=== PATIENT | male | born 1950 | race Caucasian/White ===

== ENCOUNTER 2018-04-20 06:53 | Day surgery (SDC) | payer MEDICARE, OTHER, SELFPAY ==
[2018-04-06 13:03] VITALS: BMI 27.1
[2018-04-20] MEDS: LACTATED RINGERS 1,000 ML 100 ML IV (07:15)
[2018-04-20 07:22] VITALS: BP 126/76; PULSE 54; RESP 16; TEMP 36.6; O2SAT 97; BMI 27.1
--- NOTE | 2018-04-20 07:29 | PM.HP.1 ---
History of Present Illness Date Patient Seen: 04/20/18 Time Patient Seen: 07:29 Chief complaint: left inguinal hernia repair [id number] Narrative: 67-year-old male who recently presented with an enlarging painful left inguinal mass. He notices the mass mostly with strenuous activity. He is able spontaneously reduce the lesion when he is relaxed and assumes a supine position. Pain is described as somewhat burning and radiating toward the left groin into the scrotum. He has no associated chronic cough, abdominal pain, nausea, vomiting, difficulty with bowel function, or change in urinary patterns. No melena, hematochezia, or bright red blood per rectum. Denies any symptoms in the right side of the groin. Patient History Medical History Allergic rhinitis (Acute) Chronic lymphocytic leukemia (Acute) Colonoscopy planned (Acute) Elevated liver enzymes (Acute) GERD (gastroesophageal reflux disease) (Acute) History of liver disease (Acute) Irritable bowel syndrome (Acute) Left inguinal hernia (Acute) Mass of left inguinal region (Acute) Osteoarthritis (Acute) Retinitis pigmentosa (Acute) Right inguinal hernia (Acute) Tinnitus (Acute) Family & Social History Family History: Reviewed 04/20/18 by Alfredo Taveras MD Social History: household members spouse Tobacco & Substance use: Smoking Status Never smoker alcohol intake current alcohol intake frequency 0-2 drinks per day Substance Use Type does not use Meds Home Medications Medication Instructions Recorded Confirmed Type lutein 20 mg PO #0 09/15/16 History calcium carbonate [Tums] 500 mg PO QDAY #0 03/11/17 04/20/18 History multivitamin 04/06/18 History Vitamin C 04/20/18 History Vitamin D3 04/20/18 History vitamin B complex 04/20/18 History vitamin E 04/20/18 History Allergies Allergy/AdvReac Type Severity Reaction Status Date / Time amoxicillin [AMOXICILLIN] Allergy Intermediate HIVES Verified 04/20/18 07:07 Review of Systems Review of Systems Unchanged from his initial evaluation in January 2018 All systems reviewed & are unremarkable except as noted in HPI and below Exam Narrative Exam Narrative: Well-nourished well-developed male lying comfortably on the gurney in no acute distress. Alert oriented x3. is at the bedside. Sclera nonicteric Neck is supple Chest clear to auscultation bilaterally. Regular rate and rhythm Abdomen soft, nondistended, nontender, no masses Extremities show no clubbing, cyanosis, or edema Focused inguinal examination reveals reducible mildly tender left inguinal hernia. No inguinal lymphadenopathy bilaterally. Objective Labs Labs: Recent laboratory studies from the [facility] for his known chronic lymphocytic leukemia show a normal white blood cell count, normal hemoglobin, and normal platelet count of [id number]. Assessment & Plan Plan: Assessment/Plan Narrative: 67-year-old male with symptomatic reducible left inguinal hernia. I recommended once again open repair with mesh of the hernia. Technical details were again reviewed. Risks, benefits, and alternatives were also explained as documented in his original visit of February 10, 2018. Please refer to that note for further details. Otherwise, the entire document remains completely unchanged except as noted above today. All questions were once again answered to his satisfaction, and he voiced understanding. Consent was placed on the chart. We will proceed with surgery today as planned.
--- NOTE | 2018-04-20 07:32 | P.HP_ITS ---
History of Present Illness Date Patient Seen: 04/20/18 Time Patient Seen: 07:29 Chief complaint: left inguinal hernia repair [id number] Narrative: 67-year-old male who recently presented with an enlarging painful left inguinal mass. He notices the mass mostly with strenuous activity. He is able spontaneously reduce the lesion when he is relaxed and assumes a supine position. Pain is described as somewhat burning and radiating toward the left groin into the scrotum. He has no associated chronic cough, abdominal pain, nausea, vomiting, difficulty with bowel function, or change in urinary patterns. No melena, hematochezia, or bright red blood per rectum. Denies any symptoms in the right side of the groin. Patient History Medical History Allergic rhinitis (Acute) Chronic lymphocytic leukemia (Acute) Colonoscopy planned (Acute) Elevated liver enzymes (Acute) GERD (gastroesophageal reflux disease) (Acute) History of liver disease (Acute) Irritable bowel syndrome (Acute) Left inguinal hernia (Acute) Mass of left inguinal region (Acute) Osteoarthritis (Acute) Retinitis pigmentosa (Acute) Right inguinal hernia (Acute) Tinnitus (Acute) Family & Social History Family History: Reviewed 04/20/18 by Alfredo Taveras MD Social History: household members spouse Tobacco & Substance use: Smoking Status Never smoker alcohol intake current alcohol intake frequency 0-2 drinks per day Substance Use Type does not use Meds Home Medications Medication Instructions Recorded Confirmed Type lutein 20 mg PO #0 09/15/16 History calcium carbonate [Tums] 500 mg PO QDAY #0 03/11/17 04/20/18 History multivitamin 04/06/18 History Vitamin C 04/20/18 History Vitamin D3 04/20/18 History vitamin B complex 04/20/18 History vitamin E 04/20/18 History Allergies Allergy/AdvReac Type Severity Reaction Status Date / Time amoxicillin [AMOXICILLIN] Allergy Intermediate HIVES Verified 04/20/18 07:07 Review of Systems Review of Systems Unchanged from his initial evaluation in January 2018 All systems reviewed & are unremarkable except as noted in HPI and below Exam Narrative Exam Narrative: Well-nourished well-developed male lying comfortably on the gurney in no acute distress. Alert oriented x3. is at the bedside. Sclera nonicteric Neck is supple Chest clear to auscultation bilaterally. Regular rate and rhythm Abdomen soft, nondistended, nontender, no masses Extremities show no clubbing, cyanosis, or edema Focused inguinal examination reveals reducible mildly tender left inguinal hernia. No inguinal lymphadenopathy bilaterally. Objective Labs Labs: Recent laboratory studies from the [facility] for his known chronic lymphocytic leukemia show a normal white blood cell count, normal hemoglobin, and normal platelet count of [id number]. Assessment & Plan Plan: Assessment/Plan Narrative: 67-year-old male with symptomatic reducible left inguinal hernia. I recommended once again open repair with mesh of the hernia. Technical details were again reviewed. Risks, benefits, and alternatives were also explained as documented in his original visit of February 10, 2018. Please refer to that note for further details. Otherwise, the entire document remains completely unchanged except as noted above today. All questions were once again answered to his satisfaction, and he voiced understanding. Consent was placed on the chart. We will proceed with surgery today as planned.
--- NOTE | 2018-04-20 07:33 | PM.PREOP ---
Pre-operative Note Interval Note Pre-op Check: Yes History & Physical Reviewed by Physician, Yes Exam Performed and Yes History & Physical exam performed today by Physician Changes: No H&P completed within 30 days and has changed as indicated here:: Patient was again seen and examined today. History physical examination documented and placed on the chart dated today. No significant changes from his original evaluation of February 10, 2018. However, H&P is updated accordingly. Proceed with open left inguinal hernia repair with mesh as planned today.
[2018-04-20] MEDS: CLINDAMYCIN 900 MG/50 ML PIGGYBACK 50 MG IV (07:56)
--- NOTE | 2018-04-20 08:33 | SUR.OPER ---
to or from opd via gurney transfered to or table per self Supine on padded OR bed, head on pillow, arms secured on padded arm boards at <90 degrees abduction, legs uncrossed, safety belt at thigh, tape over blanket over lower legs.
[2018-04-20] MEDS: BUPIVACAINE 0.5% (PF) VIAL 30 ML INJ (09:11)
[2018-04-20] MEDS: LIDOCAINE 1% 20 ML INJ INJ (09:11)
--- NOTE | 2018-04-20 09:31 | PM.OP.1 ---
Operative Date/Time/Diagnoses Date of procedure: 04/20/18 Time of procedure: 09:31 Pre-op diagnosis: Symptomatic left inguinal hernia Post-op diagnosis: same Procedure & Clinicians Procedure: 1. Open left inguinal hernia repair with mesh Same procedure as scheduled: Yes Indications: 67-year-old male who presented with enlarging painful left inguinal mass found to be consistent with reducible hernia on examination. Open repair with mesh was recommended. Surgeon: Alfredo Taveras Click Yes if Unassisted: Yes Anesthesia Type: General Operative Notes Findings: 1. Extremely large left indirect hernia sac 2. Extremely large lipoma of the cord consistent with herniated preperitoneal fat 3. Chronic adhesions between the hernia sac, lipoma of the cord, and adjacent structures including the spermatic cord 4. Extremely attenuated fragile ilioinguinal nerve which was sacrificed during the dissection in order to adequately reduce the hernia and prevent potential chronic neuropathic pain Closure Type: primary Specimen(s): none sent Implants & Drains: 1. Large Pro Loop polypropylene mesh plug and onlay patch in left inguinal canal Estimated Blood Loss (mL): 15 Blood products transfused: none Procedure in detail: After obtaining informed consent the patient was brought to the operating room placed supine on the table. After satisfactory induction of anesthesia the abdomen was prepped and draped in the usual sterile fashion including the genitalia. A SCOAP time-out was performed per standard protocol. Transverse incision for a distance of approximately 4 cm was designed over the course of the left inguinal canal in an existing skin fold. Area was infiltrated with a 1-1 mixture 1% lidocaine with 1 100,000 epinephrine and 0.5% plain Marcaine for postoperative analgesia. Skin incision was created with a 10. Scalpel blade followed by the Bovie for hemostasis. Dissection proceeded down through the subcutaneous tissue to the external oblique fascia. Weitlaner retractor was used to provide exposure. External oblique fascia was divided in the direction of its fibers with a 15. Scalpel blade followed by Metzenbaum scissors to the level of the external inguinal ring. Edges of the fascia were secured with hemostats bilaterally. Meticulous blunt dissection was employed to encircle the hernia sac, lipoma of the cord, and spermatic cord structures. This dissection was actually somewhat more difficult because of the significant chronic adhesions present between all the structures. Eventually I was able to encircle the structures as above bluntly followed by a Alex drain. Meticulous blunt dissection as well as intermittent sharp dissection was employed to skeletonize the spermatic cord. Findings are as above. I did sacrifice the ilioinguinal nerve as indicated above. The lipoma of the cord and large hernia sac were eventually liberated from surrounding structures and reduced back through the internal inguinal ring. There was no evidence of any significant direct hernia defect. Mesh was then brought onto the operative field and the plug was placed into the internal inguinal ring. Plug was secured with interrupted 2 0 Vicryl suture circumferentially. Onlay patch was brought onto the field and placed over the floor the inguinal canal. Patch was sewn in place with interrupted 0 Tycron sutures. Anteriorly the mesh was sewn to the conjoined tendon while laterally it was secured to the ileal pubic tract. Medially the mesh was secured to the rectus fascia. Tails of the mesh were brought around the spermatic cord and placed deep to the external oblique fascia where they were secured with a single 0 Tycron stitch. Great care was taken to avoid strangulation of the spermatic cord. Wound was irrigated with copious amounts of sterile saline solution and hemostasis was verified. Spermatic cord was placed back into its usual anatomic position and the external oblique fascia was closed over the cord with running 3 0 Vicryl suture. Subcutaneous tissue was reapproximated with interrupted 3 0 Vicryl suture. Skin was closed with a running subcuticular 4 O Monocryl suture. Dermal adhesive was applied to the skin. At the conclusion of the case the testicles were noted to be in normal descended position bilaterally. Anesthesia was reversed the patient extubated in the operating room. He was taken recovery in stable condition. Complications: none Condition: stable Disposition: PACU Plan for aftercare: 1. Discharge to home 2. Follow up in surgery Clinic in 2 weeks
[2018-04-20 09:33] VITALS: BP 108/69; BP 109/67; PULSE 73; PULSE 74; RESP 10; RESP 16; TEMP 36.1; O2SAT 94
[2018-04-20 09:38] VITALS: BP 123/74; PULSE 86; RESP 10; TEMP 36; O2SAT 96
[2018-04-20 09:43] VITALS: BP 116/80; PULSE 75; RESP 16; O2SAT 96
[2018-04-20 09:49] VITALS: BP 112/70; PULSE 78; RESP 15; TEMP 36.1; O2SAT 97
[2018-04-20] MEDS: OXYCODONE/ACETAMINOPHEN 5/325 TABLET 1 TAB PO (09:55)
[2018-04-20 10:05] VITALS: BP 123/74; PULSE 74; RESP 15; TEMP 36.3; O2SAT 98
== END 2018-04-20 10:42 | disposition home or self-care (01) ==
PROVIDERS: Visit Provider Surgery
PROC: (CPT 49505; principal; 2018-04-20 07:45)
DX: K40.90 Unilateral inguinal hernia, without obstruction or gangrene, not specified as recurrent (principal); D17.6 Benign lipomatous neoplasm of spermatic cord; K66.0 Peritoneal adhesions (postprocedural) (postinfection)
CPT/HCPCS: 49505; C1781; J1100; J1885; J2405; J2704; J3010

== ENCOUNTER 2018-04-22 12:14 | Emergency (ER) | payer MEDICARE, OTHER, SELFPAY ==
[2018-04-22 12:17] VITALS: BP 142/82; PULSE 87; RESP 22; TEMP 37; O2SAT 100
--- NOTE | 2018-04-22 12:56 | ED.ABDPAIN ---
HPI - Abdominal Pain General Chief Complaint: Abdominal Pain Stated Complaint: Constipation Time Seen by Provider: 04/22/18 12:31 Source: patient Mode of arrival: EMS Limitations: no limitations History of Present Illness HPI narrative: 67-year-old male here for evaluation of constipation. Patient states that on Thursday of this week he had a left inguinal hernia repair done by Dr. Taveras here at [facility]. He states that after the surgery he only had a day or so of the opioid pain medication. Since then he has been on Motrin and Tylenol. He states that the wound seems to be healing fine. Is having some discomfort to that area. Is here because he has not had a bowel movement for the past couple days. Has tried some do could state at home without any improvement. He states that he has the urge to go the bathroom but cannot go to the bathroom. Has not had any vomiting. No abdominal pain other than around the surgical site. Related Data Home Medications Medication Instructions Recorded Confirmed lutein 20 mg PO DAILY #0 09/15/16 04/22/18 calcium carbonate [Tums] 500 mg PO QDAY #0 03/11/17 04/22/18 multivitamin 1 tab PO DAILY 04/06/18 04/22/18 Vitamin C 1 tab PO DAILY 04/20/18 04/22/18 Vitamin D3 1 cap PO DAILY 04/20/18 04/22/18 vitamin B complex 1 tab PO DAILY 04/20/18 04/22/18 vitamin E 1 cap PO DAILY 04/20/18 04/22/18 acetaminophen [Tylenol Extra 1 dose PO PRN PRN 04/22/18 04/22/18 Strength] docusate sodium [DulcoEase] 1 cap PO PRN PRN 04/22/18 04/22/18 Previous Rx's Medication Instructions Recorded oxycodone 5 mg PO Q3H PRN #40 tab 04/20/18 sodium phosphates [Fleet Enema] 118 ml KS DAILY PRN #133 ml 04/22/18 Allergies Allergy/AdvReac Type Severity Reaction Status Date / Time amoxicillin [AMOXICILLIN] Allergy Intermediate HIVES Verified 04/22/18 12:23 Review of Systems Constitutional Denies fatigue, Denies fever(s) and Denies headache(s) ENT Ears, Nose, Mouth, and Throat: Denies vertigo, Denies dizziness and Denies headache(s) Cardiovascular Denies chest pain and Denies dyspnea Respiratory Denies dyspnea Gastrointestinal Gastrointestinal: Reports abdominal pain, Denies bloating, Reports change in bowel habits, Reports constipation, Reports cramping, Denies diarrhea, Denies nausea and Denies vomiting Genitourinary Denies dysuria Musculoskeletal Denies myalgias and Denies arthralgias Integumentary/Breasts Denies lesions and Denies rash Neurologic Denies vertigo, Denies dizziness and Denies headache(s) Endocrine Denies fatigue Hematologic/Lymphatic Denies easy bleeding and Denies easy bruising [facility] Medical History Allergic rhinitis (Acute) Chronic lymphocytic leukemia (Acute) Colonoscopy planned (Acute) Elevated liver enzymes (Acute) GERD (gastroesophageal reflux disease) (Acute) History of liver disease (Acute) Irritable bowel syndrome (Acute) Left inguinal hernia (Acute) Mass of left inguinal region (Acute) Osteoarthritis (Acute) Retinitis pigmentosa (Acute) Right inguinal hernia (Acute) Tinnitus (Acute) Social History household members: spouse Smoking Status: Never smoker alcohol intake: current Exam Initial Vital Signs Initial Vital Signs: Vital Signs Temperature 98.6 F 04/22/18 12:17 Pulse Rate 87 04/22/18 12:17 Respiratory Rate 22 04/22/18 12:17 Blood Pressure 142/82 H 04/22/18 12:17 Pulse Oximetry 100 04/22/18 12:17 Const General: cooperative, healthy appearing, comfortable, well developed, well groomed and No acute distress Orientation: alert, awake and oriented x3 HENMT Head: normal to inspection, normocephalic and atraumatic Resp Effort & Inspection: normal respiratory effort GI Inspection: non-distended Palpation: soft, No firm, No guarding and tender ( left lower quadrant over the surgical site) Rectal Exam: normal sphincter tone, No fecal impaction, No mass and tenderness External: normal external exam and circumcised Skin Other: patient with bruising to the left lower quadrant extending around the surgical site and down into his scrotum. It does appear to the be what I would expect 2 days after an inguinal hernia repair. The surgical incision site looks well. Does have some surrounding redness however I feel that it is what would be expected after this type of surgery. Extrem General: normal to inspection and capillary refill normal Psych Appearance: grossly normal and well kempt Course Orders Ordered: ED Orders 04/22/18 13:30 Urine Microscopic Stat Discontinued Medications Sodium Biphosphate/Sodium Phosphate (Fleet Enema) 1 each KS NOW ONE Stop: 04/22/18 12:57 Last Admin: 04/22/18 13:49 Dose: 1 each Vital Signs - 8 hr 04/22/18 12:17 Temperature 98.6 F Pulse Rate 87 Respiratory Rate 22 Blood Pressure 142/82 H Pulse Oximetry 100 MDM - Abdominal Pain Lab Data Attestation: I reviewed the patient's lab results. Lab Results 04/22/18 Range/Units 13:30 Urine RBC 0-1/hpf (0-5/HPF) Urine WBC 0-1/hpf (0-5/HPF) Ur Squamous Epith Cells 0-1 /hpf Urine Bacteria None seen (None) Ur Culture Indicated? Cult not indicated Micro UA Comment Not Reportable Point of care testing: Urine Dip Bedside Urine Glucose Negative Bedside Urine Bilirubin - Negative Bedside Urine Ketone - Negative Urine Specific Spencer 1.015 Bedside Urine Occult Blood + Bedside Urine pH 6.0 Bedside Urine Protein - Negative Bedside Urine Urobilinogen - Negative Bedside Urine Nitrite - Negative Bedside Urine Leukocytes - Negative Esterase MDM Narrative Medical decision making narrative: Patient has a benign abdominal exam. The surgical site in his left lower quadrant is consistent with what I would expect 2 days after his inguinal hernia repair. I did discuss with him that if the redness did worsen the what it is now he did need to be re-evaluated. Patient received a enema here in the emergency department without any success in a bowel movement. My rectal exam does not show any palpable stool in his rectum. Will hold on a CT scan for now. Considered an obstruction however patient has a soft benign abdomen, is still passing flatus, has not had any vomiting. Will send home with a prescription for another enema. We did discuss the use of oral laxative such as MiraLax. He was given return precautions. He expressed understanding and agreement with plan Discharge Plan Departure Patient Disposition: Home, Self-Care Clinical Impression: Constipation Instructions: Constipation (Alternative Therapy), Constipation Activity Restrictions/Additional Instructions: continue all of your medications as directed. Use the MiraLax that you can buy [id number] likely discussed. If the redness around her surgical incision worsens than what it is today you do need to be re-evaluated. You can contact your operative surgeon initially before returning to the emergency department for this however you can return to the ER if needed. With regard to year constipation return to the emergency department for any new symptoms, worsening abdominal pain, vomiting, fevers, or any other concerning symptoms. Prescriptions: New sodium phosphates [Fleet Enema] 19-7 gram/118 mL enema 118 ml KS DAILY PRN (Reason: constipation) Qty: 133 RF: 0 No Action lutein 20 MG capsule 20 mg PO DAILY Qty: 0 RF: 0 calcium carbonate [Tums] 500 MG tablet,chewable 500 mg PO QDAY Qty: 0 RF: 0 multivitamin Tablet 1 tab PO DAILY RF: 0 Vitamin C 1 tab PO DAILY RF: 0 Vitamin D3 1 cap PO DAILY RF: 0 vitamin B complex 1 tab PO DAILY RF: 0 vitamin E 1 cap PO DAILY RF: 0 oxycodone 5 mg tablet 5 mg PO Q3H PRN (Reason: pain) Qty: 40 RF: 0 acetaminophen [Tylenol Extra Strength] 500 mg Tablet 1 dose PO PRN PRN (Reason: Pain, Mild) RF: 0 docusate sodium [DulcoEase] 100 mg Capsule 1 cap PO PRN PRN (Reason: Constipation) RF: 0
[2018-04-22 13:39] LABS: Bacteria Urine None Seen
[2018-04-22] MEDS: FLEETS ENEMA 1 EACH PR (13:49)
[2018-04-22 13:53] LABS: RBC Urine 0-1/HPF (0-5/HPF); WBC Urine 0-1/HPF (0-5/HPF)
[2018-04-22 13:54] LABS: Culture Indicated Urine Cult Not Indicated; Squamous Epithelial Cell Urine 0-1 /HPF
[2018-04-22 14:26] VITALS: BP 118/77; PULSE 79; RESP 15; O2SAT 98
== END 2018-04-22 14:39 | disposition home or self-care (01) ==
PROVIDERS: Emergency Provider Emergency Medicine
DX: K59.00 Constipation, unspecified (principal)
CPT/HCPCS: 81003; 81015; 99282; 99283

== ENCOUNTER → 2020-06-16 09:19 | Outpatient (CLI) | payer MEDICARE, OTHER, SELFPAY ==
[2020-06-16 11:16] LABS: Alanine Aminotransferase 22 IU/L (<50); Albumin 3.8 g/dL (3.5-5.0); Albumin Globulin Ratio 1.5 (1.0-2.8); Alkaline Phosphatase 48 U/L (38-126); Aspartate Aminotransferase 29 IU/L (17-59); BUN Creatinine Ratio 18.3 (6-22); Bilirubin Total 1.1 mg/dL (0.2-1.3); Blood Urea Nitrogen 17 mg/dL (9-20); Calcium 9.1 mg/dL (8.4-10.2); Carbon Dioxide 29 mmol/L (22-32); Chloride 105 mmol/L (98-107); Cholesterol 149 mg/dL (140-199); Estimated Glomerular Filt Rate > 60.0 mL/min (>60); Globulin 2.5 g/dL (1.7-4.1); Glucose 93 mg/dL (80-110); HDL Cholesterol 42 mg/dL (40-60); HEMOLYSIS < 15 (0-50); LDL Cholesterol Calculated 85 mg/dL (<100); Magnesium 2.3 mg/dL (1.6-2.3); Potassium 4.1 mmol/L (3.4-5.1); Sodium 138 mmol/L (137-145); Total Protein 6.3 g/dL (6.3-8.2); Triglycerides 109 mg/dL (35-150)
[2020-06-16 11:18] LABS: Hemoglobin A1C% w Est Avg Glu 5.5 % (4.0-6.0)
== END ==
PROVIDERS: PCP Family Medicine; Referring Provider Family Medicine; Visit Provider Family Medicine
DX: Z13.1 Encounter for screening for diabetes mellitus (principal); R11.0 Nausea
CPT/HCPCS: 36415; 80053; 80061; 83036; 83735; 85610

== ENCOUNTER → 2020-10-25 07:59 | Outpatient (CLI) | payer MEDICARE, OTHER, SELFPAY ==
[2020-10-25] MEDS: COVID-19 VACC #1, MRNA(MOD) 100 MCG/0.5 ML VIAL IM (08:10)
== END ==
PROVIDERS: PCP Family Medicine; Visit Provider Internal Medicine
DX: Z23 Encounter for immunization (principal)
CPT/HCPCS: 0011A; 91301

== ENCOUNTER → 2020-11-22 07:41 | Outpatient (CLI) | payer MEDICARE, OTHER, SELFPAY ==
[2020-11-22] MEDS: COVID-19 VACC #2, MRNA(MOD) 100 MCG/0.5 ML VIAL IM (07:49)
== END ==
PROVIDERS: PCP Family Medicine; Visit Provider Internal Medicine
DX: Z23 Encounter for immunization (principal)
CPT/HCPCS: 0012A; 91301

== ENCOUNTER → 2021-07-04 07:02 | Outpatient (CLI) | payer MEDICARE, OTHER, SELFPAY ==
--- NOTE | 2021-07-04 07:04 | DI.RAD.S_ITS ---
PROCEDURE: XR SHOULDER RT MIN 2V INDICATIONS: right shoulder pain TECHNIQUE: 3 views of the shoulder were acquired. COMPARISON: None. FINDINGS: Bones: No fractures or dislocations. Mild degenerative change at the GH and AC joints. No suspicious bony lesions. Visualized ribs appear intact. Soft tissues: No suspicious soft tissue calcifications. IMPRESSION: Mild right shoulder DJD appreciated. If clinically indicated consider MRI for further evaluation of the rotator cuff. Dictated by: Giuseppe Mancia M.D. on 07/04/2021 at 7:50 Approved by: Giuseppe Mancia M.D. on 07/04/2021 at 7:51
[2021-07-04 08:13] LABS: Hematocrit 42.6 % (41-53); Mean Corpuscular HGB Conc 32.9 % (30-36); Mean Corpuscular Volume 100.4 fL (80-100); Platelet Count 159 X10^3/uL (150-400); Red Blood Cell Count 4.24 X10^6/uL (4.5-5.9); Red Cell Distribution Width 13.7 % (11.6-14.8); White Blood Cell Count 20.5 X10^3/uL (4.5-11.0)
[2021-07-04 08:17] LABS: Add Manual Diff / Slide Review YES
[2021-07-04 08:52] LABS: Alanine Aminotransferase 18 IU/L (<50); Albumin 4.1 g/dL (3.5-5.0); Albumin Globulin Ratio 1.9 (1.0-2.8); Alkaline Phosphatase 49 U/L (38-126); Aspartate Aminotransferase 23 IU/L (17-59); BUN Creatinine Ratio 21.4 (6-22); Blood Urea Nitrogen 22 mg/dL (9-20); Calcium 9.4 mg/dL (8.4-10.2); Carbon Dioxide 31 mmol/L (22-32); Chloride 105 mmol/L (98-107); Estimated Glomerular Filt Rate > 60.0 mL/min (>60); Globulin 2.2 g/dL (1.7-4.1); Glucose 81 mg/dL (80-110); HEMOLYSIS < 15 (0-50); Lactate Dehydrogenase 360 U/L (313-618); Potassium 3.9 mmol/L (3.4-5.1); Sodium 140 mmol/L (137-145); Total Protein 6.3 g/dL (6.3-8.2)
[2021-07-04 09:04] LABS: Neutrophils Absolute Manual 3485 /uL (3000-5900); RBC Morphology Normal Morphology; Smudge Cells 3+; Total Cells Counted 100
== END ==
PROVIDERS: PCP Family Medicine; Referring Provider Family Medicine; Visit Provider Family Medicine
DX: M75.41 Impingement syndrome of right shoulder (principal); C91.90 Lymphoid leukemia, unspecified not having achieved remission; M54.2 Cervicalgia; R59.0 Localized enlarged lymph nodes; M19.011 Primary osteoarthritis, right shoulder
CPT/HCPCS: 36415; 73030; 80053; 83615; 85007; 85025

== ENCOUNTER → 2021-07-05 15:52 | Outpatient (CLI) | payer MEDICARE, OTHER, SELFPAY ==
--- NOTE | 2021-07-05 15:54 | DI.CT.S_ITS ---
PROCEDURE: CT SOFT TISSUE NECK WO CON INDICATIONS: posterior cervical lymphadenopathy TECHNIQUE: Non-contrast 3.0 mm axial sections acquired from the sella to the aortic arch. Additional oblique axial 3.0 mm sections acquired through the pharynx. 3 mm thick coronal and sagittal reformats were generated. For radiation dose reduction, the following was used: automated exposure control. COMPARISON: None. FINDINGS: Image quality: Excellent. Lymph nodes: Scattered nonenlarged lymph nodes noted in the submental and deep cervical chains. Largest is a left level 4 node short axis 8 mm. Scattered level 5 nodes all measure less than 5 mm short axis. Bilateral supraclavicular nodes measure up to 9 mm short axis on the left. Subcutaneous 8 mm lymph node in the posterior subcutaneous fat at the level of C2 measures 8 mm in short axis. Vessels: Non-opacified vessels appear normal in caliber. Neck spaces: The oropharynx, nasopharynx, and pharynx demonstrate no mucosal lesions. The vocal cords, false vocal cords, pyriform sinuses, epiglottis, vallecula, and tongue base all appear normal. Extramucosal spaces appear unremarkable. Glands: The parotid and submandibular glands appear normal, without stones. Thyroid gland unremarkable. Miscellaneous: Visualized brain and orbits appear normal. Lung apices appear clear. Superficial soft tissues appear normal. Lack of IV contrast precludes definitive evaluation of solid and vascular structures IMPRESSION: 1. Scattered nonenlarged lymph nodes throughout the neck as above are not enlarged but abnormal in number 2. Degenerative cervical spine changes. Approved by: Andi Oliver M.D. on 07/05/2021 at 16:05
== END ==
PROVIDERS: PCP Family Medicine; Referring Provider Family Medicine; Visit Provider Family Medicine
DX: R59.0 Localized enlarged lymph nodes (principal); M54.2 Cervicalgia; C91.90 Lymphoid leukemia, unspecified not having achieved remission
CPT/HCPCS: 70490

== ENCOUNTER → 2021-08-16 13:30 | Outpatient (CLI) | payer MEDICARE, OTHER, SELFPAY ==
[2021-08-16] MEDS: COVID-19 VACC #3, MRNA(MOD) 50 MCG/0.25 ML VIAL IM (13:35)
== END ==
PROVIDERS: PCP Family Medicine; Visit Provider Internal Medicine
DX: Z23 Encounter for immunization (principal)
CPT/HCPCS: 0013A; 91301

== ENCOUNTER → 2021-08-20 16:15 | Outpatient (CLI) | payer MEDICARE, OTHER, SELFPAY ==
--- NOTE | 2021-08-20 16:17 | DI.MRI.S_ITS ---
PROCEDURE: MR CERVICAL SPINE WO CON INDICATIONS: CLL and chronic neck pain TECHNIQUE: Noncontrast sagittal T1 spin echo and T2 fast spin echo, sagittal STIR, foraminal oblique sagittal T2 fast spin echo, and axial gradient echo or T2 fast spin echo through the cervical spine. COMPARISON: None. FINDINGS: Image quality: Excellent. Alignment and Curvature: There is mild grade 1 retrolisthesis of C3 on C4, C4 on C5, and C5 on C6. Bone Marrow: Marrow demonstrates normal overall signal. Mild reactive signal throughout the endplates of the cervical spine. Spinal Cord: Visualized spinal cord has normal size and signal. No cerebellar tonsillar herniation. Paraspinous Soft Tissues: No paravertebral masses. Prevertebral soft tissues are normal in thickness. C2-C3: Moderate disc desiccation. Mild diffuse disc bulge. Mild facet and uncovertebral hypertrophy bilaterally. Mild canal stenosis. Mild bilateral foraminal stenosis. C3-C4: Congenital canal stenosis. Moderate disc height loss and desiccation. Moderate diffuse disc bulge. Moderate facet and uncovertebral hypertrophy. Severe canal stenosis. Mild cord flattening. Severe bilateral foraminal stenosis with bilateral C4 nerve root compression. C4-C5: Congenital canal stenosis. Mild disc height loss. Moderate disc desiccation. Moderate diffuse disc bulge. Moderate facet and uncovertebral hypertrophy. Severe canal stenosis. Mild cord flattening. Severe right and moderate left foraminal stenosis. Right C5 nerve root compression. C5-C6: Congenital canal stenosis. Mild disc height loss. Moderate disc desiccation. Mild diffuse disc bulge. Mild facet and uncovertebral hypertrophy. Moderate canal stenosis. Mild bilateral foraminal stenosis. C6-C7: Congenital canal stenosis. Moderate disc desiccation. Mild diffuse disc bulge. Mild facet and uncovertebral hypertrophy bilaterally. Moderate canal stenosis. Mild bilateral foraminal stenosis. C7-T1: Moderate disc height loss and desiccation. No significant canal, or foraminal stenosis. IMPRESSION: 1. Multilevel degenerative disc and facet disease, as well as uncovertebral hypertrophy, superimposed on diffuse congenital canal stenosis. 2. Multilevel canal stenoses, worst at C3-C4 and C4-C5 where there is mild cord flattening. 3. Multilevel foraminal stenoses, worst at C3-C4 and C4-C5 where there is associated intraforaminal nerve root compression. Recommend correlation with clinical symptoms to ascertain relevance of these findings. Dictated by: Cassidy Simms M.D. on 08/21/2021 at 8:28 Approved by: Cassidy Simms M.D. on 08/21/2021 at 8:33
== END ==
PROVIDERS: PCP Family Medicine; Referring Provider Family Medicine; Visit Provider Family Medicine
DX: M50.31 Other cervical disc degeneration, high cervical region (principal); M48.02 Spinal stenosis, cervical region; R59.0 Localized enlarged lymph nodes; C91.10 Chronic lymphocytic leukemia of B-cell type not having achieved remission; G89.29 Other chronic pain
CPT/HCPCS: 72141

== ENCOUNTER → 2022-11-29 08:02 | Outpatient (CLI) | payer MEDICARE, OTHER, SELFPAY ==
[2022-11-29 08:45] LABS: Hematocrit 40.3 % (41-53); Hemoglobin 13.8 g/dL (13.5-17.5); Mean Corpuscular HGB Conc 34.2 % (30-36); Mean Corpuscular Hemoglobin 33.2 PG (26-34); Mean Corpuscular Volume 97.1 fL (80-100); Platelet Count 168 X10^3/uL (150-400); Red Blood Cell Count 4.16 X10^6/uL (4.5-5.9); Red Cell Distribution Width 13.7 % (11.6-14.8); White Blood Cell Count 17.6 X10^3/uL (4.5-11.0)
[2022-11-29 08:46] LABS: Alanine Aminotransferase 25 IU/L (<50); Albumin 3.9 g/dL (3.5-5.0); Albumin Globulin Ratio 1.9 (1.0-2.8); Alkaline Phosphatase 53 U/L (38-126); Aspartate Aminotransferase 28 IU/L (17-59); BUN Creatinine Ratio 18.8 (6-22); Bilirubin Total 1.3 mg/dL (0.2-1.3); Blood Urea Nitrogen 18 mg/dL (9-20); Calcium 8.8 mg/dL (8.4-10.2); Carbon Dioxide 25 mmol/L (22-32); Chloride 107 mmol/L (98-107); Cholesterol 140 mg/dL (140-199); Estimated Glomerular Filt Rate > 60 mL/min (>60); Globulin 2.1 g/dL (1.7-4.1); Glucose 92 mg/dL (80-110); HDL Cholesterol 39 mg/dL (40-60); HEMOLYSIS < 15 (0-50); LDL Cholesterol Calculated 68 mg/dL (<100); Potassium 3.9 mmol/L (3.4-5.1); Sodium 139 mmol/L (137-145); Triglycerides 164 mg/dL (35-150)
[2022-11-29 09:04] LABS: Add Manual Diff / Slide Review YES
[2022-11-29 09:07] LABS: Neutrophils Absolute Manual 5456 /uL (3000-5900); RBC Morphology Normal Morphology; Smudge Cells 3+; Total Cells Counted 100
== END ==
PROVIDERS: PCP Family Medicine; Referring Provider Family Medicine; Visit Provider Family Medicine
DX: E78.5 Hyperlipidemia, unspecified (principal); R74.8 Abnormal levels of other serum enzymes
CPT/HCPCS: 36415; 80053; 80061; 85007; 85025

== ENCOUNTER → 2023-04-18 15:29 | Outpatient (CLI) | payer MEDICARE, OTHER, SELFPAY ==
--- NOTE | 2023-04-18 15:33 | DI.RAD.S_ITS ---
PROCEDURE: XR CHEST 2V INDICATIONS: Cough TECHNIQUE: 2 views of the chest were acquired. COMPARISON: None. FINDINGS: Surgical changes and devices: None. Lungs and pleura: Lungs are clear. No pleural effusions or pneumothorax. Mediastinum: Mediastinal contours are normal. Heart size is normal. Bones and chest wall: No suspicious bony abnormalities. Soft tissues appear unremarkable. IMPRESSION: No acute cardiopulmonary abnormalities or focal airspace disease. Dictated by: Roderick Leung M.D. on 04/18/2023 at 14:43 Approved by: Roderick Leung M.D. on 04/18/2023 at 14:43
== END ==
PROVIDERS: PCP Family Medicine; Referring Provider Nurse Practitioner Family; Visit Provider Nurse Practitioner Family
DX: R05.9 Cough, unspecified (principal)
CPT/HCPCS: 71046

== ENCOUNTER → 2024-01-13 09:50 | Outpatient (CLI) | payer MEDICARE, OTHER, SELFPAY ==
[2024-01-13 11:45] LABS: Hematocrit 41.4 % (41-53); Hemoglobin 13.9 g/dL (13.5-17.5); Mean Corpuscular HGB Conc 33.5 % (30-36); Mean Corpuscular Hemoglobin 33.1 PG (26-34); Mean Corpuscular Volume 98.8 fL (80-100); Platelet Count 155 X10^3/uL (150-400); Red Blood Cell Count 4.19 X10^6/uL (4.5-5.9); Red Cell Distribution Width 13.7 % (11.6-14.8); White Blood Cell Count 15.4 X10^3/uL (4.5-11.0)
[2024-01-13 11:46] LABS: Add Manual Diff / Slide Review YES
[2024-01-13 12:17] LABS: Neutrophils Absolute Manual 4312 /uL (3000-5900); RBC Morphology Normal Morphology; Total Cells Counted 100
[2024-01-13 12:18] LABS: Smudge Cells 1+
[2024-01-14 05:25] LABS: IGA 26 mg/dL (61-437); IGG 634 mg/dL (603-1613); IGM 20 mg/dL (15-143)
== END ==
LOC: LAB 09:53
PROVIDERS: PCP Family Medicine; Referring Provider Internal Medicine Hematology & Oncology; Visit Provider Internal Medicine Hematology & Oncology
DX: C91.10 Chronic lymphocytic leukemia of B-cell type not having achieved remission (principal)
CPT/HCPCS: 36415; 82784; 85007; 85025

== ENCOUNTER 2024-10-29 12:51 | Emergency (ER) | payer MEDICARE, OTHER, SELFPAY ==
[2024-10-29] VITALS (23 sets, daily range): BP systolic 115–138; BP diastolic 57–74; PULSE 57–71; RESP 18–31; TEMP 36.8; O2SAT 94–98; BMI 28.0
--- NOTE | 2024-10-29 13:12 | ED_ITS ---
HPI - Neuro Symptoms/Deficit General Chief Complaint: Neuro Symptoms/Deficit Stated Complaint: WIC; Losing control of lips, affecting speech Time Seen by Provider: 10/29/24 13:12 Source: patient Mode of arrival: Ambulatory History of Present Illness HPI Narrative: Patient is a 74-year-old male past medical history of hyperlipidemia CLL not on any medication currently or previously comes into the ED from home for evaluation of decreased sensation to his lips. States that at around 7:00 a.m. yesterday he started noticing decreased sensation and strength to his lips. He denies any difficulty speaking no dysarthria NIH of 0 at time of evaluation. Not complaining of any other symptoms such as headache visual disturbances chest pain shortness breath fever chills nausea vomiting abdominal pain or any other GI/ symptoms at this time. On Anticoagulants: No Related Data Home Medications Medication Instructions Recorded Confirmed cholecalciferol (vitamin D3) 50 50 mcg PO DAILY 12/01/22 09/13/24 mcg (2,000 unit) capsule vit C 250 mg-E 90 mg-zinc 40 1 tab PO QAM AND QPM 12/01/22 09/13/24 mg-copper 1 [id number] chew tablet (PreserVision AREDS-2) Allergies Allergy/AdvReac Type Severity Reaction Status Date / Time amoxicillin [AMOXICILLIN] Allergy Intermediate HIVES Verified 09/13/24 16:24 Penicillins AdvReac Intermediate Hives Verified 09/13/24 16:24 wasps Allergy Intermediate Hives Uncoded 09/13/24 16:24 Review of Systems Review of Systems Narrative: General: Denies fever, chills, weight loss HEENT: Denies headache, eye drainage, eye irritation, head trauma, sore throat, voice change Cardiovascular: Denies any chest pain, palpitations, shortness of breath, tachycardia Respiratory: Denies any shortness of breath, cough, wheeze, stridor GI/: Denies any abdominal pain, nausea, vomiting, diarrhea, bright red blood per rectum, melanotic stools, urinary frequency, urinary retention, dysuria, hematuria MSK: Denies any joint pain, muscle pains, swelling Skin: Denies any rashes, lesions, discoloration Neuro: Decreased strength and sensation to lips, Denies any headache, lightheadedness, dizziness, fainting, weakness Psych: Denies SI/HI Hematologic/Lymphatic On Anticoagulants: No Patient History Medical History (Updated 10/29/24 @ 17:53 by Adam Fuentes DO) Hearing loss Chronic sinusitis Neuroforaminal stenosis of cervical spine Cervical stenosis of spinal canal Chronic neck pain Impingement syndrome of right shoulder Posterior cervical lymphadenopathy Hyperlipidemia Neck pain Dysfunction of left eustachian tube History of liver disease Elevated liver enzymes Osteoarthritis Allergic rhinitis GERD (gastroesophageal reflux disease) Right inguinal hernia Left inguinal hernia Colonoscopy planned Tinnitus Retinitis pigmentosa Chronic lymphocytic leukemia Mass of left inguinal region Irritable bowel syndrome Surgical History (Updated 06/14/20 @ 16:25 by Dilan Wills MD) H/O left inguinal hernia repair Social History household members: spouse Smoking Status: Never smoker alcohol intake: current Smoking Status: Never smoker alcohol intake frequency: 0-2 drinks per day Exam Narrative Exam Narrative: General: Cooperative, comfortable, well-developed, not in acute distress HEENT: Normocephalic, atraumatic, PERRLA, normal sclera, eyelids normal, Neck: Active full range of motion, atraumatic Chest: Normal to inspection, negative crepitus, no overlying erythema ecchymosis Respiratory: Normal respiratory effort, not in acute respiratory distress, clear to auscultation bilaterally negative cough, wheeze, tachypnea, rhonchi, rales Cardiology: Regular rate rhythm negative gallop, murmur, rubs GI/: Normal to inspection, soft, nonrigid, no tenderness to palpation, exam deferred MSK: Full range of active range of motion of all 4 extremities, atraumatic Skin: No rashes lesions noted Neuro: Patient stating decreased sensation to bilateral lips, however no dysphagia no dysarthria no voice changes no stridor no trismus Alert awake oriented x3, moves all 4 extremities spontaneously, cranial nerves intact, able to answer all questions appropriately follows commands appropriately Psych: Cooperative, negative suicidal or homicidal ideations Initial Vital Signs Initial Vital Signs: Vital Signs Temperature 98.2 F 10/29/24 12:54 Pulse Rate 64 10/29/24 12:54 Respiratory Rate 18 10/29/24 12:54 Blood Pressure 138/64 10/29/24 12:54 Pulse Oximetry 98 10/29/24 12:54 Oxygen Delivery Method Room Air 10/29/24 12:54 Course Orders Ordered: ED Orders 10/29/24 13:10 Complete Blood Count AUTO DIFF Stat Comprehensive Metabolic Panel Stat Ethanol (ETOH) Stat MAG [Magnesium] Stat PTT Partial Thromboplastin Marcello Stat Prothrombin Time INR Stat Troponin & CK Cardiac Panel Stat 10/29/24 13:12 CT head/brain wo con Stat 10/29/24 13:13 CT angio head and neck Stat EKG-12 Lead Stat 10/29/24 13:14 CXR [XR chest 1V] Stat 10/29/24 13:35 COVID19 -Nasal RAPID Stat 10/29/24 16:20 Urinalysis and Microscopic Stat Urine Drug Screen, Rapid Stat Vital Signs Vital signs: Vital Signs - 8 hr 10/29/24 12:54 10/29/24 13:04 10/29/24 13:30 Temperature 98.2 F Pulse Rate 64 64 Respiratory Rate 18 Blood Pressure 138/64 134/72 Pulse Oximetry 98 96 Oxygen Delivery Method Room Air 10/29/24 13:30 10/29/24 13:35 10/29/24 13:40 Temperature Pulse Rate 63 66 62 Respiratory Rate 27 H 21 19 Blood Pressure Pulse Oximetry 96 94 95 Oxygen Delivery Method 10/29/24 13:45 10/29/24 13:50 10/29/24 13:55 Temperature Pulse Rate 61 62 61 Respiratory Rate 25 H 24 31 H Blood Pressure Pulse Oximetry 95 95 94 Oxygen Delivery Method 10/29/24 14:00 10/29/24 14:00 10/29/24 14:05 Temperature Pulse Rate 60 60 Respiratory Rate 21 20 Blood Pressure 133/63 Pulse Oximetry 95 95 Oxygen Delivery Method 10/29/24 14:10 10/29/24 14:15 10/29/24 14:20 Temperature Pulse Rate 61 60 60 Respiratory Rate 20 24 19 Blood Pressure Pulse Oximetry 97 94 95 Oxygen Delivery Method 10/29/24 14:25 10/29/24 14:30 10/29/24 14:30 Temperature Pulse Rate 60 59 L Respiratory Rate 22 20 Blood Pressure 129/65 Pulse Oximetry 95 96 Oxygen Delivery Method 10/29/24 15:00 10/29/24 15:01 10/29/24 15:01 Temperature Pulse Rate 60 60 Respiratory Rate 19 21 Blood Pressure 115/57 L Pulse Oximetry 95 95 Oxygen Delivery Method 10/29/24 15:30 10/29/24 15:30 10/29/24 16:00 Temperature Pulse Rate 57 L 62 Respiratory Rate 21 Blood Pressure 131/60 Pulse Oximetry 96 97 Oxygen Delivery Method 10/29/24 16:01 10/29/24 16:01 10/29/24 16:50 Temperature Pulse Rate 71 Respiratory Rate 22 Blood Pressure 123/74 127/67 Pulse Oximetry 97 Oxygen Delivery Method 10/29/24 16:50 10/29/24 17:00 10/29/24 17:00 Temperature Pulse Rate 60 59 L Respiratory Rate 27 H 26 H Blood Pressure 130/74 Pulse Oximetry 96 96 Oxygen Delivery Method MDM - Neuro Symptoms/Deficit Differential Diagnosis Differential diagnosis: Likely other (CVA, electrolyte abnormality, ACS) Lab Data 10/29/24 13:10 10/29/24 13:10 Labs: Lab Results 10/29/24 10/29/24 10/29/24 Range/Units 13:10 13:35 16:20 WBC 15.8 H (4.5-11.0) X10^3/uL RBC 4.26 L (4.5-5.9) X10^6/uL Hgb 14.3 (13.5-17.5) g/dL Hct 43.0 (41-53) % MCV 100.9 H (80-100) fL MCH 33.5 (26-34) PG MCHC 33.2 (30-36) % RDW 13.9 (11.6-14.8) % Plt Count 160 (150-400) X10^3/uL Neut % (Auto) Not Reportable Lymph % (Auto) Not Reportable [place] % (Auto) Not Reportable Eos % (Auto) Not Reportable Baso % (Auto) Not Reportable Lymph # (Auto) Not Reportable [place] # (Auto) Not Reportable Baso # (Auto) Not Reportable Total Counted 100 Seg Neutrophils % 29.0 L (38-70) % Band Neutrophils % 1.0 L (3-7) % Lymphocytes % (Manual) 55.0 H (25-45) % Atypical Lymphs % 11.0 H ( - 0) % Monocytes % (Manual) 2.0 (2-11) % Eosinophils % (Manual) 1.0 L (2-4) % Basophils % (Manual) 1.0 (0-1) % Neutrophils # (Manual) 4740 (2771-8059) /uL RBC Morphology See below Anisocytosis 1+ H PT 11.4 (9.4-12.5) SECONDS INR 1.0 (0.9-1.3) APTT 33 (25.1-36.5) SECONDS Sodium 141 (137-145) mmol/L Potassium 4.2 (3.4-5.1) mmol/L Chloride 108 H (98-107) mmol/L Carbon Dioxide 26 (22-32) mmol/L BUN 19 (9-20) mg/dL Creatinine 0.93 (0.66-1.25) mg/dL Estimated GFR > 60 (>60) mL/min BUN/Creatinine Ratio 20.4 (6-22) Glucose 113 H (80-110) mg/dL Calcium 9.2 (8.4-10.2) mg/dL Magnesium 2.3 (1.6-2.3) mg/dL Total Bilirubin 0.8 (0.2-1.3) mg/dL AST 36 (17-59) IU/L ALT 26 (<50) IU/L Alkaline Phosphatase 54 (38-126) U/L Total Creatine Kinase 100 (55-170) U/L Troponin I < 0.012 (0.01-0.034) ng/mL Total Protein 6.6 (6.3-8.2) g/dL Albumin 4.3 (3.5-5.0) g/dL Globulin 2.3 (1.7-4.1) g/dL Albumin/Globulin Ratio 1.9 (1.0-2.8) Urine Color Yellow Urine Appearance Clear Urine pH 7.0 (4.5-8.0) Ur Specific [place] 1.010 (1.000-1.035) Urine Protein Negative (Negative) Urine Glucose (UA) Negative (Negative) g/dL Urine Ketones Negative (NEGATIVE) Urine Occult Blood Trace-intact (Negative) Urine Nitrate Negative (Negative) Urine Bilirubin Negative (NEGATIVE) Urine Urobilinogen 0.2 (0.2) E.U./dL Ur Leukocyte Esterase Negative (NEGATIVE) U Opiates 300ng/mL cut Negative (Negative) Ur Oxycodone Screen Negative (Negative) Urine Methadone Screen Negative (Negative) Ur Barbiturates Screen Negative (Negative) U Tricyclic Antidepress Negative (Negative) Ur Phencyclidine Scrn Negative (Negative) Ur Amphetamines Screen Negative (Negative) U Methamphetamines Scrn Negative (Negative) Ur MDMA Scrn (Ecstasy) Negative (Negative) U Benzodiazepines Scrn Negative (Negative) Urine Cocaine Screen Negative (Negative) U Marijuana (THC) Screen Negative (Negative) Urine Specific [place] (Normal) Ethyl Alcohol < 10 ( - 10) mg/dL Ur Creatinine (Normal) SARS-CoV-2 (PCR) Negative (Negative) 10/29/24 Range/Units 16:20 WBC (4.5-11.0) X10^3/uL RBC (4.5-5.9) X10^6/uL Hgb (13.5-17.5) g/dL Hct (41-53) % MCV (80-100) fL MCH (26-34) PG MCHC (30-36) % RDW (11.6-14.8) % Plt Count (150-400) X10^3/uL Neut % (Auto) Lymph % (Auto) [place] % (Auto) Eos % (Auto) Baso % (Auto) Lymph # (Auto) [place] # (Auto) Baso # (Auto) Total Counted Seg Neutrophils % (38-70) % Band Neutrophils % (3-7) % Lymphocytes % (Manual) (25-45) % Atypical Lymphs % ( - 0) % Monocytes % (Manual) (2-11) % Eosinophils % (Manual) (2-4) % Basophils % (Manual) (0-1) % Neutrophils # (Manual) (4658-3883) /uL RBC Morphology Anisocytosis PT (9.4-12.5) SECONDS INR (0.9-1.3) APTT (25.1-36.5) SECONDS Sodium (137-145) mmol/L Potassium (3.4-5.1) mmol/L Chloride (98-107) mmol/L Carbon Dioxide (22-32) mmol/L BUN (9-20) mg/dL Creatinine (0.66-1.25) mg/dL Estimated GFR (>60) mL/min BUN/Creatinine Ratio (6-22) Glucose (80-110) mg/dL Calcium (8.4-10.2) mg/dL Magnesium (1.6-2.3) mg/dL Total Bilirubin (0.2-1.3) mg/dL AST (17-59) IU/L ALT (<50) IU/L Alkaline Phosphatase (38-126) U/L Total Creatine Kinase (55-170) U/L Troponin I (0.01-0.034) ng/mL Total Protein (6.3-8.2) g/dL Albumin (3.5-5.0) g/dL Globulin (1.7-4.1) g/dL Albumin/Globulin Ratio (1.0-2.8) Urine Color Urine Appearance Urine pH Normal (4.5-8.0) Ur Specific [place] (1.000-1.035) Urine Protein (Negative) Urine Glucose (UA) (Negative) g/dL Urine Ketones (NEGATIVE) Urine Occult Blood (Negative) Urine Nitrate (Negative) Urine Bilirubin (NEGATIVE) Urine Urobilinogen (0.2) E.U./dL Ur Leukocyte Esterase (NEGATIVE) U Opiates 300ng/mL cut (Negative) Ur Oxycodone Screen (Negative) Urine Methadone Screen (Negative) Ur Barbiturates Screen (Negative) U Tricyclic Antidepress (Negative) Ur Phencyclidine Scrn (Negative) Ur Amphetamines Screen (Negative) U Methamphetamines Scrn (Negative) Ur MDMA Scrn (Ecstasy) (Negative) U Benzodiazepines Scrn (Negative) Urine Cocaine Screen (Negative) U Marijuana (THC) Screen (Negative) Urine Specific [place] Normal (Normal) Ethyl Alcohol ( - 10) mg/dL Ur Creatinine Normal (Normal) SARS-CoV-2 (PCR) (Negative) Point of Care Testing Glucose POC [address] scan - head: Radiologist's Impression: [place] [address] CT Scan Report Signed Patient: Mervin Aguirre MR#: [id number] : 1950 Acct:[id number] Age/Sex: 74 / M Date of Service: 10/29/24 Loc: ED Accession Number: [id number] Procedure: CT head/brain wo con Ordering Provider: Adam Fuentes D.O. PROCEDURE: CT HEAD/BRAIN WO CON INDICATIONS: Dysarthria TECHNIQUE: Noncontrast 4.5 mm thick angled axial sections acquired from the foramen magnum to the vertex, with coronal and sagittal reformats. For radiation dose reduction, the following was used: automated exposure control, adjustment of mA and/or kV according to patient size. COMPARISON: None. FINDINGS: Image quality: Diagnostic. CSF spaces: Basal cisterns are patent. No extra-axial fluid collections. Ventricles are normal in size and shape. Brain: No midline shift. No intracranial masses or hemorrhage. Ross-white matter interface is normal. Moderate atrophy and white matter chronic ischemic change Skull and face: Calvarium and visualized facial bones are intact, without suspicious lesions. Sinuses: Visualized sinuses and mastoids are clear. IMPRESSION: Atrophy and chronic ischemic change without intracranial hemorrhage or mass effect CTA - brain/neck: Radiologist's Impression: [address] [address] [address] Scan Report Signed Patient: Mervin Aguirre MR#: [id number] : 1950 Acct:[id number] Age/Sex: 74 / M Date of Service: 10/29/24 Loc: ED Accession Number: [id number] Procedure: CT angio head and neck Ordering Provider: Adam Fuentes D.O. PROCEDURE: CT ANGIO HEAD AND NECK INDICATIONS: Dysarthria TECHNIQUE: After the administration of intravenous contrast, 1 mm thick sections acquired from the aortic arch through the [place] of [place]. MIP reformats of the arterial vasculature were utilized. For radiation dose reduction, the following was used: automated exposure control, adjustment of mA and/or kV according to patient size. COMPARISON: None. FINDINGS: Cerebral CT Angiogram: Internal carotid arteries: No acute findings. Intracranial ICA are patent with no significant stenosis. No occlusion. No aneurysm. Anterior cerebral arteries: Unremarkable. No significant stenosis. No occlusion. No aneurysm. Middle cerebral arteries: Unremarkable. No significant stenosis. No occlusion. No aneurysm. Posterior cerebral arteries: Unremarkable. No significant stenosis. No occlusion. No aneurysm. Basilar artery: Unremarkable. No significant stenosis. No occlusion. No aneurysm. Vertebral arteries: Left vertebral artery dominance. Diminutive intradural right vertebral artery terminates in the posterior inferior cerebellar artery Dural venous sinuses: Unremarkable given phase of enhancement. Other: Arterial phase brain parenchyma is unremarkable. Neck CT Angiogram: Internal carotid arteries: Unremarkable. No significant stenosis. No dissection or occlusion. Common carotid arteries: Unremarkable. No significant stenosis. No dissection or occlusion. External carotid arteries: Unremarkable. No occlusion. Vertebral arteries: Left vertebral artery dominance. Other: Multilevel degenerative disc disease and arthropathy in the cervical spine Aortic Arch and Mediastinum: Partially visualized aortic arch unremarkable without evidence of aneurysm. Origins of the great vessels unremarkable. IMPRESSION: No acute findings. No evidence of large vessel occlusion, aneurysm or vascular malformation. No significant stenosis. Chest x-ray: Radiologist's Impression: [address] [address] XRay Report Signed Patient: Mervin Aguirre MR#: [id number] : 1950 Acct:[id number] Age/Sex: 74 / M Date of Service: 10/29/24 Loc: ED Accession Number: [id number] Procedure: XR chest 1V Ordering Provider: Adam Fuentes D.O. PROCEDURE: XR CHEST 1V INDICATIONS: Dysphagia TECHNIQUE: One view of the chest was acquired. COMPARISON: [facility], , XR CHEST 2V, 04/18/2023, 15:27. FINDINGS: Surgical changes and devices: None. Lungs and pleura: Lungs are clear. No pleural effusions or pneumothorax. Mediastinum: Mediastinal contours appear normal. Heart size is normal. Bones and chest wall: No suspicious bony lesions. Overlying soft tissues appear unremarkable. IMPRESSION: No acute cardiopulmonary abnormality is seen. ECG Data Interpretation: EKG interpreted ED physician sinus at 60 beats per minute QTC 404, normal axis, nonspecific ST changes, no STEMI MDM Narrative Medical decision making narrative: 74-year-old male past medical history hyperlipidemia comes into the ED from home for evaluation of lip tingling numbness sensation ongoing for a proximally greater than 24 hours, states that it feels like he is unable to purchase lips strongly/properly. Denies any other symptoms at this time denies any trauma or falls. Patient had lab work imaging performed here, CT head CT head and neck unremarkable, chest x-ray unremarkable, mild leukocytosis at 15 however no signs of infection in urine or chest x-ray, most likely reactive in nature. Patient had complete resolution of symptoms while here in the emergency department. Is able to speak full sentences no dysarthria. NIH of 0. Patient instructed follow up with primary care doctor in an outpatient setting strict return precautions given he verbalized understanding of this and agrees to being discharged home with outpatient follow up Discharge Plan Departure Patient Disposition: Home Clinical Impression: Numbness of lip Activity Restrictions/Additional Instructions: Please read the discharge instructions sheet carefully and bring all papers to all doctor follow-up visits, as it may contain information that your doctor may want to see. Disease processes change and evolve, if your symptoms worsen or if you develop any new symptoms that are concerning to you please return for evaluation. Your evaluation today does not show any evidence of any life- threatening/serious illnesses requiring admission to the hospital or surgery. Please follow-up with your doctor for re-evaluation in approximately 1 day. Seek immediate medical attention for any worrisome symptoms. *If you do not have a primary care provider please contact the [facility] Resource line at [phone]. They will ask some questions about your medical history and help get you set up with a doctor in the community. Prescriptions: No Action PreserVision AREDS-2 250-90-40-1 mg tablet,chewable 1 tab PO QAM AND QPM cholecalciferol (vitamin D3) 50 mcg (2,000 unit) capsule 50 mcg PO DAILY Referrals: Dilan Wills MD [Primary Care Provider] - Stand Alone Forms: Patient Portal/API/Survey
--- NOTE | 2024-10-29 13:14 | DI.RAD.S_ITS ---
PROCEDURE: XR CHEST 1V INDICATIONS: Dysphagia TECHNIQUE: One view of the chest was acquired. COMPARISON: [facility], CR, XR CHEST 2V, 04/18/2023, 15:27. FINDINGS: Surgical changes and devices: None. Lungs and pleura: Lungs are clear. No pleural effusions or pneumothorax. Mediastinum: Mediastinal contours appear normal. Heart size is normal. Bones and chest wall: No suspicious bony lesions. Overlying soft tissues appear unremarkable. IMPRESSION: No acute cardiopulmonary abnormality is seen. Approved by: Andi Oliver M.D. on 10/29/2024 at 13:27
[2024-10-29 13:34] LABS: Prothrombin Time 11.4 SECONDS (9.4-12.5)
[2024-10-29 13:37] LABS: PTT Partial Thromboplastin Tim 33 SECONDS (25.1-36.5)
[2024-10-29 13:44] LABS: Magnesium 2.3 mg/dL (1.6-2.3)
[2024-10-29 13:45] LABS: Alanine Aminotransferase 26 IU/L (<50); Albumin 4.3 g/dL (3.5-5.0); Albumin Globulin Ratio 1.9 (1.0-2.8); Alkaline Phosphatase 54 U/L (38-126); Aspartate Aminotransferase 36 IU/L (17-59); BUN Creatinine Ratio 20.4 (6-22); Bilirubin Total 0.8 mg/dL (0.2-1.3); Blood Urea Nitrogen 19 mg/dL (9-20); Calcium 9.2 mg/dL (8.4-10.2); Carbon Dioxide 26 mmol/L (22-32); Chloride 108 mmol/L (98-107); Creatine Kinase 100 U/L (55-170); Estimated Glomerular Filt Rate > 60 mL/min (>60); Ethanol (ETOH) < 10 mg/dL; Globulin 2.3 g/dL (1.7-4.1); Glucose 113 mg/dL (80-110); HEMOLYSIS 19 (0-50); Hemoglobin 14.3 g/dL (13.5-17.5); Mean Corpuscular HGB Conc 33.2 % (30-36); Mean Corpuscular Hemoglobin 33.5 PG (26-34); Mean Corpuscular Volume 100.9 fL (80-100); Platelet Count 160 X10^3/uL (150-400); Potassium 4.2 mmol/L (3.4-5.1); Red Blood Cell Count 4.26 X10^6/uL (4.5-5.9); Red Cell Distribution Width 13.9 % (11.6-14.8); Sodium 141 mmol/L (137-145); Total Protein 6.6 g/dL (6.3-8.2); White Blood Cell Count 15.8 X10^3/uL (4.5-11.0)
[2024-10-29 13:47] LABS: Add Manual Diff / Slide Review YES
--- NOTE | 2024-10-29 13:47 | EKG_ITS ---
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
[2024-10-29 13:56] LABS: Troponin I < 0.012 ng/mL (0.01-0.034)
[2024-10-29 13:57] LABS: COVID19 -Nasal RAPID Negative (Negative)
[2024-10-29 14:07] LABS: Neutrophils Absolute Manual 4740 /uL (3000-5900); Total Cells Counted 100
[2024-10-29 14:09] LABS: Anisocytosis 1+
[2024-10-29 17:28] LABS: Appearance Urine UA CLEAR; Bilirubin Urine UA NEGATIVE (NEGATIVE); Color Urine UA YELLOW; Glucose Urine UA NEGATIVE (Negative); Ketones Urine UA NEGATIVE (NEGATIVE); Leukocyte Esterase Urine UA NEGATIVE (NEGATIVE); Nitrite Urine UA NEGATIVE (Negative); Occult Blood Urine UA TRACE-INTACT (Negative); Protein Urine UA NEGATIVE (Negative); Urobilinogen Urine UA 0.2 E.U./dL (0.2)
[2024-10-29 17:35] LABS: UR Morphine/Opiate cutoff 300 Negative (Negative); Ur Creatinine Normal (Normal); Ur Specific Gravity Normal (Normal); Urine Amphetamines Negative (Negative); Urine Barbiturates Negative (Negative); Urine Benzodiazepines Negative (Negative); Urine Cocaine Negative (Negative); Urine MDMA Negative (Negative); Urine Methadone Negative (Negative); Urine Methamphetamines Negative (Negative); Urine Oxycodone Negative (Negative); Urine Phencyclidine Negative (Negative); Urine Tetrahydrocannabinol Negative (Negative); Urine Tricyclic Antidepressant Negative (Negative); Urine pH Normal (Normal)
[2024-10-29 17:54] LABS: Bacteria Urine Occasional (0-1); Culture Indicated Urine Cult Not Indicated; RBC Urine None Seen (0-5/HPF); Squamous Epithelial Cell Urine None Seen (0-5/HPF); Urine Volume 10mL (spun); WBC Urine None Seen (0-5/HPF)
== END 2024-10-29 18:01 | disposition home or self-care (01) ==
PROVIDERS: Emergency Provider Student in an Organized Health Care Education/Training Program; PCP Family Medicine
DX: R20.0 Anesthesia of skin (principal); R47.1 Dysarthria and anarthria; E78.5 Hyperlipidemia, unspecified; C91.10 Chronic lymphocytic leukemia of B-cell type not having achieved remission
CPT/HCPCS: 36415; 70450; 70496; 70498; 71045; 80053; 80305; 80320; 81001; 82550; 82962; 83735; 84484; 85007; 85025; 85610; 85730; 87635; 93005; 99284; Q9967

== ENCOUNTER → 2024-11-04 07:05 | Outpatient (CLI) | payer MEDICARE, OTHER, SELFPAY ==
--- NOTE | 2024-11-04 07:06 | DI.CT.S_ITS ---
PROCEDURE: CT INTERNAL AUDITORY CANALS BI INDICATIONS: left ear loss, left V2 numbness COMPARISON: None. TECHNIQUE: Noncontrast 0.6 mm thick axial sections acquired through each temporal bone separately. Coronal images are reformatted. FINDINGS: Image quality: Excellent. RIGHT: External auditory canal: Canal has a normal appearance. Middle ear: The middle ear structures, including the ossicles and tympanic membrane, appear normal. No abnormal fluid or soft tissue density. Inner ear: Inner ear is normally formed and appears unremarkable. Facial nerve appears normal throughout is course. Mastoids: Mastoid air cells are clear. LEFT: External auditory canal: Canal has a normal appearance. Middle ear: The middle ear structures, including the ossicles and tympanic membrane, appear normal. No abnormal fluid or soft tissue density. Inner ear: Inner ear is normally formed and appears unremarkable. Facial nerve appears normal throughout its course. Mastoids: Mastoid air cells are clear. MISCELLANEOUS: Visualized surrounding bones appear unremarkable. Visualized intracranial structures, including the cerebellopontine angle cisterns, appear normal. IMPRESSION: Unremarkable exam. Dictated by: Filomena Dunaway M.D. on 11/04/2024 at 9:43 Approved by: Filomena Dunaway M.D. on 11/04/2024 at 9:46
== END ==
PROVIDERS: PCP Family Medicine; Referring Provider Family Medicine; Visit Provider Family Medicine
DX: R20.0 Anesthesia of skin (principal); H91.92 Unspecified hearing loss, left ear
CPT/HCPCS: 70480

== ENCOUNTER → 2025-02-14 17:09 | Outpatient (CLI) | payer MEDICARE, OTHER, SELFPAY ==
[2025-02-14 17:49] LABS: Hematocrit 41.8 % (41-53); Hemoglobin 14.1 g/dL (13.5-17.5); Mean Corpuscular HGB Conc 33.6 % (30-36); Mean Corpuscular Hemoglobin 33.6 PG (26-34); Mean Corpuscular Volume 99.9 fL (80-100); Platelet Count 152 X10^3/uL (150-400); Red Blood Cell Count 4.18 X10^6/uL (4.5-5.9); Red Cell Distribution Width 14.2 % (11.6-14.8); White Blood Cell Count 13.5 X10^3/uL (4.5-11.0)
[2025-02-14 17:51] LABS: Add Manual Diff / Slide Review YES
[2025-02-14 18:09] LABS: Appearance Urine UA CLEAR; Bilirubin Urine UA NEGATIVE (NEGATIVE); Color Urine UA YELLOW; Glucose Urine UA NEGATIVE (Negative); Ketones Urine UA TRACE (NEGATIVE); Leukocyte Esterase Urine UA NEGATIVE (NEGATIVE); Nitrite Urine UA NEGATIVE (Negative); Occult Blood Urine UA 1+ (Negative); Protein Urine UA NEGATIVE (Negative)
[2025-02-14 18:14] LABS: Neutrophils Absolute Manual 4320 /uL (3000-5900); Total Cells Counted 100
[2025-02-14 18:16] LABS: Macrocytosis 1+; Smudge Cells 3+
[2025-02-14 18:26] LABS: Bacteria Urine Occasional (0-1); Culture Indicated Urine Cult Not Indicated; RBC Urine 1-5/HPF (0-5/HPF); Squamous Epithelial Cell Urine 0-1 /HPF (0-5/HPF); Urine Volume 10mL (spun); WBC Urine 0-1/HPF (0-5/HPF)
[2025-02-14 18:30] LABS: Prostate Specific Antigen Scrn 0.319 ng/mL (0.1-4.0)
== END ==
LOC: LAB 17:11
PROVIDERS: PCP Family Medicine; Referring Provider Family Medicine; Visit Provider Family Medicine
DX: N45.1 Epididymitis (principal); Z12.5 Encounter for screening for malignant neoplasm of prostate; C91.90 Lymphoid leukemia, unspecified not having achieved remission; N41.9 Inflammatory disease of prostate, unspecified
CPT/HCPCS: 36415; 81001; 85007; 85025; G0103